=== PATIENT | male | born 1975 | race African-American/Black ===

== ENCOUNTER 2025-01-11 15:19 | Inpatient (IN) | payer OTHER ==
[2025-01-11] VITALS: BP 148/85; PULSE 93; RESP 18; TEMP 36.2; O2SAT 96
[~2025-01-11] VITALS: Ht 182.9 cm; Wt 79.9 kg
[~2025-01-11 15:19] MED LIST: MUSCLE RELAXANT; [UNRECOGNIZED DRUG - REMARK]
[2025-01-11 15:24] VITALS: O2SAT 99
[2025-01-11] MEDS: CEFTRIAXONE 1GM/50ML 50 ML IV ONE (16:08)
[2025-01-11] MEDS: SODIUM CHLORIDE 0.9% (SEPSIS BOLUS) IV ONE (16:09)
[2025-01-11 16:37] LABS: BG BASE EXCESS -5.4 mmol/L (-2.0-3.0); BG CARBOXYHEMOGLOBIN 0.5 % (0.5-1.5); BG DEOXYHEMOGLOBIN 4.1 % (0.0-5.0); BG FRACTION INSPIRED OXYGEN 21; BG HCO3 ACT 19.5 mmol/L (21.0-28.0); BG METHEMOGLOBIN 0.3 % (0.5-1.5); BG OXYGEN SATURATION 95.9 % (94.0-98.0); BG OXYHEMOGLOBIN 95.1 % (94.0-98.0); BG PCO2 36.3 mmHg (35.0-48.0); BG PH 7.348 (7.350-7.450); BG PO2 81.3 mmHg (83.0-108.0); BG SAMPLE SITE RIGHT RADIAL; BG TOTAL HEMOGLOBIN 13.2 g/dL (13.5-17.5); BG VENT MODE ROOM AIR
[2025-01-11 16:53] LABS: BASOPHILS % 0.2 % (0.0-2.0); EOSINOPHILS % 0.5 % (0.0-5.0); HEMATOCRIT. 39.4 % (42.0-52.0); HEMOGLOBIN. 12.7 g/dL (14.0-18.0); LYMPHOCYTES % 27.9 % (20.0-50.0); MEAN PLATELET VOLUME 9.2 fl (7.4-10.4); MONOCYTES % 8.5 % (2.0-8.0); NEUTROPHILS % 62.9 % (40.0-76.0); PLATELET 218 x1000/uL (130-400); RED BLOOD CELL COUNT 4.61 mill/uL (4.7-6.1); RED CELL DISTRIBUTION WIDTH 12.9 % (11.6-14.6)
[2025-01-11 17:05] LABS: INR 1.0
[2025-01-11 17:10] LABS: CREATININE 0.8 mg/dL (0.6-1.3); TROPONIN I HIGH SENSITIVITY < 4 ng/L (3.0-53); UREA NITROGEN BLOOD 5 mg/dL (9-23)
[2025-01-11 17:11] LABS: ETHANOL BLOOD < 10 mg/dL (<10)
[2025-01-11 17:12] LABS: ASPARTATE AMINOTRANSFERASE 26 IU/L (<34); BILIRUBIN DIRECT 0.1 mg/dL (<=3.0); BILIRUBIN TOTAL 0.4 mg/dL (0.1-1.0); PROTEIN TOTAL 6.6 g/dL (6.0-8.3)
[2025-01-11] MEDS: INSULIN REGULAR (HUMULIN R) 1000UNITS/10ML VIAL SUBCUT SCH (17:54)
[2025-01-11 19:12] LABS: CLARITY URINE CLEAR (CLEAR); COLOR URINE YELLOW (YELLOW); GLUCOSE URINE 3+ (NEGATIVE); KETONES URINE 2+ (NEGATIVE); LEUKOCYTE ESTERASE URINE NEGATIVE (NEGATIVE); NITRITE URINE NEGATIVE (NEGATIVE); OCCULT BLOOD URINE NEGATIVE (NEGATIVE); PH URINE 5.0 (4.5-8.0); PROTEIN URINE TRACE (NEGATIVE); SPECIFIC GRAVITY URINE 1.022 (1.005-1.030); UROBILINOGEN URINE 0.2 E.U./dL (0.2-1.0)
[2025-01-11 19:26] LABS: BACTERIA URINE TRACE
[2025-01-11 19:27] LABS: RBC URINE NONE SEEN /hpf (0-2); SQUAMOUS EPITHELIAL CELL URINE FEW /lpf (RARE/1+); WBC URINE 0-2 /hpf (0-2)
[2025-01-11 19:35] LABS: *AMPHETAMINES SCREEN URINE NEGATIVE (NEGATIVE); *BARBITURATES SCREEN URINE NEGATIVE (NEGATIVE); *BENZODIAZEPINES SCREEN URINE NEGATIVE (NEGATIVE); *COCAINE SCREEN URINE NEGATIVE (NEGATIVE); CANNABINOID URINE SCREEN NEGATIVE (NEGATIVE); ECSTASY MDMA SCREEN URINE NEGATIVE (NEGATIVE); METHADONE URINE SCREEN NEGATIVE (NEGATIVE); OPIATES URINE SCREEN NEGATIVE (NEGATIVE); PHENCYCLIDINE URINE SCREEN NEGATIVE (NEGATIVE)
[2025-01-11 21:09] VITALS: BP 159/87; PULSE 99; RESP 20; TEMP 36.1; O2SAT 99
[2025-01-11 21:51] VITALS: BP 159/87; PULSE 98; RESP 20; TEMP 37.252
[2025-01-11] MEDS ORDERED: ZOLPIDEM TARTRATE 5MG TABLET PO PRN (22:45)
[2025-01-11] MEDS ORDERED: DEXTROSE 50% WATER 50ML SYRINGE IV PRN (22:45)
[2025-01-12 04:00] VITALS: BP 154/88; PULSE 94; RESP 18; TEMP 36.7; O2SAT 96
[2025-01-12] MEDS: BLOOD SUGAR DIAGNOSTIC STRIP TEST SCH (06:21)
[2025-01-12 06:56] LABS: BASOPHILS % 0.2 % (0.0-2.0); EOSINOPHILS % 0.8 % (0.0-5.0); HEMATOCRIT. 37.7 % (42.0-52.0); HEMOGLOBIN. 12.3 g/dL (14.0-18.0); LYMPHOCYTES % 36.0 % (20.0-50.0); MEAN PLATELET VOLUME 9.7 fl (7.4-10.4); MONOCYTES % 8.2 % (2.0-8.0); NEUTROPHILS % 54.8 % (40.0-76.0); PLATELET 219 x1000/uL (130-400); RED BLOOD CELL COUNT 4.49 mill/uL (4.7-6.1); RED CELL DISTRIBUTION WIDTH 13.0 % (11.6-14.6)
[2025-01-12 07:35] LABS: CREATININE 0.7 mg/dL (0.6-1.3); TRIGLYCERIDE 218 mg/dL (0-150); UREA NITROGEN BLOOD 6 mg/dL (9-23)
[2025-01-12 07:36] LABS: LDL CHOLESTEROL 123 mg/dL (5-100)
[2025-01-12 08:00] VITALS: BP 149/89; PULSE 94; RESP 18; TEMP 36.4; O2SAT 97
[2025-01-12] MEDS: LOSARTAN 50 MG TABLET PO SCH (09:10)
[2025-01-12] MEDS: INSULIN LISPRO 100 UNITS/ML SUBCUT SCH (09:13)
[2025-01-12] MEDS: INSULIN GLARGINE 100 UNITS/ML SUBCUT SCH (10:13)
[2025-01-12 12:00] VITALS: BP 134/86; PULSE 94; RESP 16; TEMP 36.8; O2SAT 98
[2025-01-12] MEDS ORDERED: INSU100I28 SQ (13:05)
[2025-01-12] MEDS ORDERED: LOSA50TA41 PO (13:05)
[2025-01-12] MEDS: HYDRALAZINE 20MG/ML VIAL IV PRN (15:10)
[2025-01-12 15:41] VITALS: BP 142/77; PULSE 95; RESP 18; TEMP 97.5
[2025-01-12 16:00] VITALS: BP 142/77; PULSE 95; RESP 18; TEMP 36.4; O2SAT 98
== END 2025-01-12 16:20 | disposition home or self-care (01) | DRG 420 ==
LOC: ER 15:19 → CANBEDREQ 18:09 → 6WST 20:56
PROVIDERS: ADMIT Internal Medicine; ATTEND Internal Medicine
DX: E11.65 Type 2 diabetes mellitus with hyperglycemia (principal); D64.9 Anemia, unspecified; I10 Essential (primary) hypertension
CPT/HCPCS: 36415; 36600; 71045; 80048; 80061; 80076; 80305; 80320; 81003; 82010; 82375; 82805; 82962; 83036; 83605; 83930; 84145; 84484; 85025; 93005; 99291; J0360; J0696; J1815; J7030; G0480